=== PATIENT | female | born 1980 | race Caucasian/White ===

== ENCOUNTER 2016-11-21 03:38 | Emergency (ER) | payer OTHER | END 2016-11-21 05:30 | disposition home or self-care (01) | LOC: FER 03:38 | DX: S13.4XXA Sprain of ligaments of cervical spine, initial encounter (principal); V49.40XA Driver injured in collision with unspecified motor vehicles in traffic accident, initial encounter; Y92.410 Unspecified street and highway as the place of occurrence of the external cause | CPT/HCPCS: 72050; 99284 ==

== ENCOUNTER 2020-09-15 23:26 | Emergency (ER) | payer OTHER ==
[2020-09-16] MEDS ORDERED: DICLOFENAC SODI75 MG PO (00:26)
[2020-09-16] MEDS ORDERED: CYCLOBENZAPRINE10 MG PO (00:26)
== END 2020-09-16 00:48 | disposition home or self-care (01) ==
LOC: FER 23:26
DX: S13.4XXA Sprain of ligaments of cervical spine, initial encounter (principal); S50.11XA Contusion of right forearm, initial encounter; Z87.891 Personal history of nicotine dependence; V49.40XA Driver injured in collision with unspecified motor vehicles in traffic accident, initial encounter; Y92.410 Unspecified street and highway as the place of occurrence of the external cause
CPT/HCPCS: 73090